=== PATIENT | female | born 2000 | race Two or more races ===

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

== ENCOUNTER 2019-11-25 19:27 | Emergency (ER) | payer BC, MEDICAID ==
[2019-11-25] MEDS ORDERED: ACETAMINOPHEN 325 MG TABLET PO ONE (20:54)
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
[2019-11-26 09:16] VITALS: BP 114/64
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
== END 2019-11-26 09:16 | disposition home or self-care (01) ==
LOC: EEVIPCON 19:27 → ER 19:27
DX: S02.5XXA Fracture of tooth (traumatic), initial encounter for closed fracture (principal); S09.90XA Unspecified injury of head, initial encounter; R68.84 Jaw pain; M54.2 Cervicalgia; M25.511 Pain in right shoulder; Y04.0XXA Assault by unarmed brawl or fight, initial encounter; F17.210 Nicotine dependence, cigarettes, uncomplicated; Z91.010 Allergy to peanuts; Z88.0 Allergy status to penicillin
CPT/HCPCS: 70450; 70486; 72125; 99284